=== PATIENT | male | born 1950 | race Asian ===

== ENCOUNTER 2016-12-19 21:40 | Emergency (ER) | payer OTHER ==
[~2016-12-19] VITALS: Ht 177.8 cm; Wt 80.0 kg
[2016-12-19 21:52] VITALS: Ht 177.8 cm; Wt 80.0 kg
[2016-12-19] MEDS ORDERED: HYDROCODONE/APAP (5/325) TAB PO ONE (23:30)
[2016-12-19] MEDS ORDERED: CYCLOBENZAPRINE 10 MG TAB PO ONE (23:30)
[2016-12-20] MEDS ORDERED: CYCL-319 PO (00:22)
[2016-12-20] MEDS ORDERED: HYDR-906 PO (00:22)
[2016-12-20] MEDS ORDERED: IBUP-1542 PO (00:22)
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
[2016-12-20 00:58] VITALS: PULSE 64; RESP 17; TEMP 98
[2016-12-20 01:46] VITALS: BP 166/98
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
== END 2016-12-20 01:46 | disposition home or self-care (01) ==
LOC: FTE 21:40
DX: S06.0X0A Concussion without loss of consciousness, initial encounter (principal); I10 Essential (primary) hypertension; V89.2XXA Person injured in unspecified motor-vehicle accident, traffic, initial encounter